=== PATIENT | female | born 1990 | race Caucasian/White ===

== ENCOUNTER 2016-12-15 09:39 | Emergency (ER) | payer MEDICAID ==
[2016-12-15] MEDS ORDERED: NS 0.9% 1000 ML* 2,000 ML IV ONE (10:19)
--- NOTE | 2016-12-15 10:26 | ED ---
Skin Complaint - HPI Summary HPI Summary: 26 female presents with complaints of a right leg infection that began to bother her ~3 days and has only worsened since. Patient states it does drain at times however stops. Describes drainage as yellow to clear and "oil like". Denies any known trauma, bites, or injury to the area. Unknown what caused the infection. Has not had anything like this before. Denies MRSA history. Is not immunocomprimised. No PMHx besides seizures and asthma. Denies any other complaints, fever/chills, abdominal pain, feeling ill, fatigue, chest pain and difficulty breathing. No medication use. Pain is worse and only when palpated or with movement. No alcohol or drug use. No recent travel out of state or country. - History of Current Complaint Chief Complaint: EDExtremityLower Time Seen by Provider: 12/15/16 09:57 Stated Complaint: RT LEG COMPLAINT Hx Obtained From: Patient Onset/Duration: Started Days Ago - 3, Still Present, Worse Since Skin Exposure Onset/Duration: Days Ago - 3 Timing: Constant Onset Severity: Mild Current Severity: Moderate Pain Intensity: 6 Pain Scale Used: 0-10 Numeric Skin Location: Leg - right posterior Character: Swelling, Redness, Raised, Painful Aggravating Symptom(s): Touch, Other: - movement Alleviating Symptom(s): Nothing - rest, not touching it Associated Signs & Symptoms: Negative - Allergy/Home Medications Allergies/Adverse Reactions: Allergies Allergy/AdvReac Type Severity Reaction Status Date / Time Carbamazepine [From Tegretol] Allergy Unknown Unknown Verified 03/21/16 10:45 Reaction Details Lamotrigine [From Lamictal] Allergy Unknown Verified 03/21/16 10:45 Reaction Details PMH/Surg Hx/FS Hx/Imm Hx Endocrine/Hematology History: Denies: Hx Blood Disorders Respiratory History: Reports: Hx Asthma GI History: Denies: Hx Crohn's Disease, Hx Diverticulosis, Hx Gall Bladder Disease, Hx Gastroesophageal Reflux Disease, Hx Irritable Bowel, Hx Ulcer Musculoskeletal History: Denies: Hx Arthritis, Hx Back Problems Neurological History: Reports: Hx Seizures Psychiatric History: Denies: Hx Depression - no know however, pt presents w/ limmited affect - Surgical History Surgery Procedure, Year, and Place: eye surgery at 5 years old - Immunization History Immunizations Up to Date: Yes Infectious Disease History: No Infectious Disease History: Denies: History Other Infectious Disease, Traveled Outside the [place] in Last 30 Days - Family History Known Family History: Positive: None - Social History Alcohol Use: None Substance Use Type: Reports: None Smoking Status (MU): Never Smoked Tobacco Review of Systems Constitutional: Negative Cardiovascular: Negative Respiratory: Negative Gastrointestinal: Negative Musculoskeletal: Negative Positive: Rash - infection/abscess, pain, redness to right leg All Other Systems Reviewed And Are Negative: Yes Physical Exam Triage Information Reviewed: Yes Vital Signs On Initial Exam: Initial Vitals Temp Pulse Resp BP Pulse Ox 99.4 F 92 20 124/82 99 12/15/16 09:41 12/15/16 09:41 12/15/16 09:41 12/15/16 09:41 12/15/16 09:41 Vital Signs Reviewed: Yes Appearance: Positive: Well-Appearing, No Pain Distress, Well-Nourished Skin: Positive: Warm, Skin Color Reflects Adequate Perfusion, Dry, Erythema @ - right posterior lateral leg/calf, firm/indurated, non-blanchable, non fluctuant , with a quarter sized white crusted circular "head"/wound with surrrounding erythema, no necrosis noted. no FB or bites noted. Warm and tender to touch. rest of skin exam normal. edematous area. minmal to no drainage, clear. reminds of brown recluse spider bite.. Negative: Cold, Numb, Cyanosis @, Target Lesions , Scaly Skin/Lesions, Pale Head/Face: Positive: Normal Head/Face Inspection Eyes: Positive: Normal, Conjunctiva Clear ENT: Positive: Hearing grossly normal, Pharynx normal Neck: Positive: Supple, Nontender, No Lymphadenopathy Respiratory/Lung Sounds: Positive: Clear to Auscultation, Breath Sounds Present. Negative: Wheezes Cardiovascular: Positive: Normal, RRR, Pulses are Symmetrical in both Upper and Lower Extremities - 2+ pedal and radial. Negative: Murmur, Rub Bowel Sounds: Positive: Present Musculoskeletal: Positive: Normal, Strength/ROM Intact, Pain @ - with movement in all directions of foot/ankle due to wound on leg, causes pain but able. Negative: Interruption @ Neurological: Positive: Normal, Sensory/Motor Intact - sensation intact, Abnormal Gait - favoring left side due to pain from wound of right leg Psychiatric: Positive: Affect/Mood Appropriate - [place] Coma Scale Coma Scale Total: 15 Diagnostics - Vital Signs Vital Signs Temp Pulse Resp BP Pulse Ox 12/15/16 09:52 99.4 F 92 20 124/82 99 12/15/16 09:41 99.4 F 92 20 124/82 99 - Laboratory Result Diagrams: 12/15/16 11:45 12/15/16 11:45 Lab Statement: Any lab studies that have been ordered have been reviewed, and results considered in the medical decision making process. - Ultrasound No standard instances Ultrasound Interpretation: Positive (See Comments) - SUBCUTANEOUS EDEMA WITH A FLUID COLLECTION OF THE RIGHT POSTERIOR CALF, MEASURING UP TO 2.2 CM, CONCERNING FOR SMALL ABSCESS, GIVEN THE CLINICAL HISTORY. Ultrasound Interpretation Completed By: Radiologist Course/Dx - Course Course Of Treatment: CBC CMP and lactic obtained. U/S of wound obtained to visualize abscess, small abscess noted, linear. After speaking with Dr Ma and viewing U/S do not feel I&D at this time is required as it was superficial fluid. Dr Ma also examined patient and wound. Agrees with plan for antibiotics. Labs unremarkable at this time. Will attempt oral antibiotics and have close follow up in 2-3 days and return if worsening. Given fluids. Attempted Wound culture obtained with small amount of drainage noted. Given pain management continue at home, ibuprofen. Rest. Follow up either in ED or primary care provider within 2-3 days. Sooner if worsening. Keflex/Bactrim, fluids and rest. warm compresses/soaks. Keep clean and dry. Aware of worsening signs and symptoms to watch out for. - Differential Diagnoses - Skin Complaint Differential Diagnoses: Abscess, Cellulitis, Local Allergic Reaction, MRSA, Other - Diagnoses Provider Diagnoses: Cellulitis of right leg - Physician Notifications Discussed Care Of Patient With: Dr Ma Time Discussed With Above Provider: 11:30 Discharge - Discharge Plan Condition: Stable Disposition: HOME Prescriptions: Cephalexin CAP* [Keflex CAP*] 500 mg PO TID #29 cap Sulfamethox/Trimethoprim DS* [Bactrim DS 800/160 TAB*] 1 tab PO BID #19 tab Patient Education Materials: Cellulitis (ED), Abscess (ED), Warm Compress or Soak (ED) Referrals: No Primary Care Phys,NOPCP [Primary Care Provider] - [facility] [place] PH[facility]IAN REFERRAL [Outside] Additional Instructions: Take prescribed medication as directed, do not miss a dose. Take until doses are completed. Ibuprofen for pain and inflammation. Continue warm compresses and soaks. Ibuprofen for pain and inflammation. Have it re-check in 2-3 days either here, urgent care, or at primary care office to ensure improvement. Drainage may be necessary if significant abscess forms. Keep clean and dry. Drink plenty of fluids. Rest. If redness increases, you develop red streaks, black colored skin in the area, fever/chills, or generalized feeling of illness please return to ED immediately.
--- NOTE | 2016-12-15 11:00 | RAD ---
HISTORY: Rule out abscess, redness and discharge of distal posterior right calf COMPARISONS: None TECHNIQUE: Multiple transverse and longitudinal centimeters were obtained of the area of clinical abnormality of the right posterior calf using grayscale and color Doppler imaging FINDINGS: There is subcutaneous edema. There is a loculated fluid collection in the subcutaneous soft tissues measuring 0.9 x 2.2 x 0.2 cm in size. IMPRESSION: SUBCUTANEOUS EDEMA WITH A FLUID COLLECTION OF THE RIGHT POSTERIOR CALF, MEASURING UP TO 2.2 CM, CONCERNING FOR SMALL ABSCESS, GIVEN THE CLINICAL HISTORY.
[2016-12-15] MEDS ORDERED: Sulfamethox/Trimethoprim DS 800/160* TAB PO ONE (11:59)
[2016-12-15] MEDS ORDERED: Cephalexin CAP* 500 MG PO ONE (11:59)
[2016-12-15 12:02] LABS: Hematocrit 35 % (35-47); Hemoglobin 11.5 g/dl (12.0-16.0); Mean Corpuscular HGB Conc 33 g/dl (31-36); Mean Corpuscular Hemoglobin 30 pg (27-31); Mean Corpuscular Volume 92 fL (80-97); Mean Platelet Volume 9 um3 (7.4-10.4); Red Cell Distribution Width 16 % (10.5-15); White Blood Count 8.5 10^3/ul (3.5-10.8)
[2016-12-15 12:16] LABS: Albumin 4.3 g/dL (3.2-5.2); Calcium 9.1 mg/dL (8.6-10.3); EGFR African American 102.6 (>60); EGFR Non-African American 79.8 (>60); Globulin 3.5 g/dL (2-4); Potassium 3.4 mmol/L (3.5-5.0); Total Bilirubin 0.5 mg/dL (0.2-1.0); Total Protein 7.8 g/dL (6.4-8.9)
[2016-12-15] MEDS ORDERED: Ketorolac INJ* 30 MG/ML 1 ML VIAL IV PUSH ONE (12:23)
[2016-12-15 12:40] VITALS: BP 132/78
[2016-12-15] MEDS ORDERED: Tetan/Diph/Pertus SYR(Tdap)* 0.5 ML SYR(BOOSTRIX) use SYR IM ONE (12:42)
== END 2016-12-15 12:59 | disposition home or self-care (01) ==
LOC: ED 09:39
DX: L03.115 Cellulitis of right lower limb (principal); J45.909 Unspecified asthma, uncomplicated
CPT/HCPCS: 36415; 80053; 83605; 85025; 87070; 87205; 90471; 90715; 96360; 96374; 99283; A9270-GY; J1885

== ENCOUNTER 2016-12-17 18:23 | Inpatient (IN) | payer MEDICAID ==
[2016-12-17] MEDS ORDERED: ceFAZolin 2 GM PREMIX (*) 2 GM/50 ML BAG IVPB ONE (20:18)
[2016-12-17 21:12] LABS: Hematocrit 32 % (35-47); Hemoglobin 10.8 g/dl (12.0-16.0); Mean Corpuscular HGB Conc 34 g/dl (31-36); Mean Corpuscular Hemoglobin 31 pg (27-31); Mean Corpuscular Volume 90 fL (80-97); Mean Platelet Volume 9 um3 (7.4-10.4); Red Blood Count 3.55 10^6/ul (4.0-5.4); Red Cell Distribution Width 16 % (10.5-15); White Blood Count 9.6 10^3/ul (3.5-10.8)
[2016-12-17 21:20] LABS: Add Diff/Slide Review? Slide Review Added; Comments Flag Yes
[2016-12-17 21:25] LABS: Albumin 4.3 g/dL (3.2-5.2); BUN/Creatinine Ratio 11.6 (8-20); Calcium 8.9 mg/dL (8.6-10.3); EGFR African American 91.4 (>60); EGFR Non-African American 71.1 (>60); Globulin 3.5 g/dL (2-4); Potassium 3.5 mmol/L (3.5-5.0); Total Bilirubin 0.4 mg/dL (0.2-1.0); Total Protein 7.8 g/dL (6.4-8.9)
[2016-12-17 21:53] LABS: Eosinophils % 1 % (0-6); Immature Granulocytes 12 % (0-9); Metamyelocytes % 1 % (0-2); Neutrophil % 56 % (38-83); Reactive Lymph % 1 % (0-6); Tear Drop Cells 1+
[2016-12-17] MEDS ORDERED: Vancomycin per Pharmacy* NOTE FOLLOW UP PRN (22:13)
[2016-12-17] MEDS ORDERED: Vancomycin(*) 1,250 MG in NS 0.9% 250 ML* 250 ML IVPB ONE (23:00)
--- NOTE | 2016-12-18 00:42 | ED ---
Loree Summers Alfonso, scribed for Elver Nunez on 12/17/16 at 2025 . Lower Extremity - HPI Summary HPI Summary: This patient is a 26 year old F presenting to [facility] with a chief complaint of a worsening RLE erythema which began 5 days ago. Pt was discharged from [facility] 2 days ago with a provider diagnosis of cellulitis of right leg and prescriptions for Bactrim and Keflex. She affirms medication compliance. Pt rates the pain 5/ 10 in severity. Symptoms aggravated and alleviated by nothing. Pt denies fever. - History of Current Complaint Chief Complaint: EDExtremityLower Stated Complaint: POSSIBLE INFECTION RT LEG Time Seen by Provider: 12/17/16 20:02 Hx Obtained From: Patient Onset of Pain: Days - 5, Prior to Arrival Onset/Duration: Days - 5 Severity Initially: Moderate Severity Currently: Moderate Pain Intensity: 5 Pain Scale Used: 0-10 Numeric Timing: Constant Location: Is Discrete @ - RLE Associated Signs And Symptoms: Positive: Redness. Negative: Fever Aggravating Factor(s): Nothing Alleviating Factor(s): Nothing - Allergies/Home Medications Allergies/Adverse Reactions: Allergies Allergy/AdvReac Type Severity Reaction Status Date / Time Carbamazepine [From Tegretol] Allergy Unknown Unknown Verified 03/21/16 10:45 Reaction Details Lamotrigine [From Lamictal] Allergy Unknown Verified 03/21/16 10:45 Reaction Details PMH/Surg Hx/FS Hx/Imm Hx Endocrine/Hematology History: Denies: Hx Blood Disorders Respiratory History: Reports: Hx Asthma GI History: Denies: Hx Crohn's Disease, Hx Diverticulosis, Hx Gall Bladder Disease, Hx Gastroesophageal Reflux Disease, Hx Irritable Bowel, Hx Ulcer Musculoskeletal History: Denies: Hx Arthritis, Hx Back Problems Neurological History: Reports: Hx Seizures Psychiatric History: Denies: Hx Depression - no know however, pt presents w/ limmited affect - Surgical History Surgery Procedure, Year, and Place: eye surgery at 5 years old Infectious Disease History: No Infectious Disease History: Denies: History Other Infectious Disease, Traveled Outside the [place] in Last 30 Days - Family History Known Family History: Negative: Hypertension, Diabetes - Social History Alcohol Use: None Substance Use Type: Reports: None Smoking Status (MU): Never Smoked Tobacco Review of Systems Negative: Fever Positive: Other - Positive RLE erythema. All Other Systems Reviewed And Are Negative: Yes Physical Exam Triage Information Reviewed: Yes Vital Signs On Initial Exam: Initial Vitals Temp Pulse Resp BP Pulse Ox 98.3 F 79 20 135/79 98 12/17/16 18:25 12/17/16 18:25 12/17/16 18:25 12/17/16 18:25 12/17/16 18:25 Vital Signs Reviewed: Yes Appearance: Positive: Well-Appearing, No Pain Distress Skin: Positive: Other - RLE erythema 6 inches in diameter with pustule at the center. Head/Face: Positive: Normal Head/Face Inspection Eyes: Positive: EOMI, EMILIA ENT: Positive: Normal ENT inspection Neck: Positive: Supple, Nontender Respiratory/Lung Sounds: Positive: Clear to Auscultation, Breath Sounds Present Cardiovascular: Positive: RRR, Pulses are Symmetrical in both Upper and Lower Extremities Abdomen Description: Positive: Nontender, Soft Bowel Sounds: Positive: Present Musculoskeletal: Positive: Normal, Strength/ROM Intact Neurological: Positive: Normal, Sensory/Motor Intact, Alert, Oriented to Person Place, Time, Other - No neurovascular deficit. Diagnostics - Vital Signs Vital Signs Temp Pulse Resp BP Pulse Ox 12/17/16 19:23 99.3 F 84 16 133/70 100 12/17/16 18:25 98.3 F 79 20 135/79 98 - Laboratory Lab Statement: Any lab studies that have been ordered have been reviewed, and results considered in the medical decision making process. Lower Extremity Course/Dx - Course Assessment/Plan: 26 year old F presents to the ED with a CC of worsening RLE erythema which began 5 days ago. Pt was discharged from [facility] 2 days ago with a provider diagnosis of cellulitis of right leg and prescriptions for Bactrim and Keflex. We discussed patient care with Dr. Lombardo (hospitalist) and they accepted the patient for admission after seeing them in the ED. Pt is agreeable with this plan. - Diagnoses Provider Diagnoses: Cellulitis and abscess of right leg - Physician Notifications Discussed Care Of Patient With: Frank Lombardo Time Discussed With Above Provider: 21:09 Instructed by Provider To: Other - Consulted Dr. Lombardo (hospitalist) who will see patient in the ED. After seeing pt in the ED, Dr. Lombardo accepted patient for admission at 2112. Discharge - Discharge Plan Condition: Stable Disposition: ADMITTED TO [facility] Referrals: No Primary Care Phys,NOPCP [Primary Care Provider] - [facility] [place] PHYS[facility]IAN REFERRAL [Outside] The documentation as recorded by the Loree stallworth Alfonso accurately reflects the service I personally performed and the decisions made by , Elver Nunez.
[2016-12-18] MEDS: Ibuprofen TAB* 600 MG PO PRN ×2 (03:19→20:30)
[2016-12-18] MEDS ORDERED: Acetaminophen TAB* 325 MG PO ONE (04:00)
[2016-12-18 05:39] LABS: Hematocrit 33 % (35-47); Hemoglobin 10.8 g/dl (12.0-16.0); Mean Corpuscular HGB Conc 33 g/dl (31-36); Mean Corpuscular Hemoglobin 30 pg (27-31); Mean Corpuscular Volume 90 fL (80-97); Mean Platelet Volume 9 um3 (7.4-10.4); Red Cell Distribution Width 16 % (10.5-15); White Blood Count 12.1 10^3/ul (3.5-10.8)
[2016-12-18] MEDS: Heparin VIAL(*) 5000 UNITS/ML VIAL (FIVE THOUSAND) SUBCUT SCH ×3 (05:53→22:00)
[2016-12-18] MEDS: Vancomycin(*) 1,250 MG in NS 0.9% 250 ML* 250 ML IVPB SCH ×3 (05:54→22:00)
--- NOTE | 2016-12-18 10:59 | HP ---
HISTORY AND PHYSICAL: DATE OF ADMISSION: 12/17/16 PRIMARY CARE PROVIDER: None. ATTENDING PHYSICIAN: Dr. Frank Lombardo * (dictated by Alyssa Shabazz NP). CHIEF COMPLAINT: Right lower extremity redness and swelling. HISTORY OF PRESENT ILLNESS: Ms. Carty is a 26-year-old female with a past medical history significant for a history of epilepsy and asthma in her teens, who initially noticed approximately 5 days some redness to her right calf. The redness and discomfort increased and she had noticed that she had been having some yellow drainage from the area at times. She denied any trauma, insect bites, or any wound to the area. She presented to the emergency room on December 15, at which time she had ultrasound showing a subcutaneous edema with fluid collection in the right posterior calf and a 2.2 cm area concerning for a small abscess. At that time, the patient was discharged from the emergency room with the diagnosis of cellulitis and placed on Keflex and Bactrim with instructions to do warm compresses. At the time, the wound was also cultured. Since the culture on the patient's ER visit, her wound culture has grown Staphylococcus saprophyticus and the area of erythema has turned more to a purple color and the middle of the wound has opened up slightly and the area continues to drain a yellow liquid. The patient also reports cramping in her right calf when walking. She denies any fever, but reports having chills today and over the last few days. The patient reports intermittent chest discomfort that she relates to be related to stress as she is a recent single mother with 5 kids at home. She denies any other symptoms such as diaphoresis, nausea, vomiting, lightheadedness, or dizziness. The patient is currently chest pain-free at this time. The patient also reports shortness of breath with exertion which she has had for a while as she noticed this most when she goes upstairs. The patient reports that she has been taking her medications as directed. The patient decided to present to the emergency room today for further evaluation of her wound as it is getting worse and not improving. While in the emergency room, the patient had labs. She has no leukocytosis. She is afebrile. Her labs were fairly unremarkable. She received a dose of cefazolin while in the emergency room and the hospitalists were asked to evaluate the patient for admission. PAST MEDICAL HISTORY: 1. Epilepsy, has not had a seizure since her senior year of high school. 2. Asthma, has not had an issue since she was a teenager. PAST SURGICAL HISTORY: Status post eye surgery at age 5. HOME MEDICATIONS: Include: 1. Bactrim DS one tablet oral twice daily. 2. Ibuprofen 400 mg oral every 6 hours as needed for pain. 3. Keflex 500 mg oral 3 times daily. ALLERGIES: LAMICTAL and TEGRETOL. FAMILY HISTORY: The patient denies any family history of coronary artery disease, diabetes mellitus, or cancer. SOCIAL HISTORY: The patient denies tobacco, alcohol, or recreational drug use. She is a qkef-ce-luxy single mother of 5 children. She reports no surrogate decision maker at this time. REVIEW OF SYSTEMS: I performed a 14-point review of systems. All the pertinent positives and negatives are mentioned in the history of present illness. Remaining review of systems are negative. PHYSICAL EXAMINATION GENERAL APPEARANCE: The patient is alert, pleasant, appears to be in no acute distress. VITAL SIGNS: Temperature 99.3, heart rate 84, respiratory rate 16, O2 sat 100% on room air, blood pressure 133/70. HEENT: Normocephalic and atraumatic. Pupils are equal and reactive to light. Extraocular movements are intact. NECK: Supple. There is no lymphadenopathy noted. RESPIRATORY: There is no accessory muscle use. The lungs are clear to auscultation bilaterally. CARDIOVASCULAR: Regular rate and rhythm. S1 and S2 present. There is no murmurs, rubs, or gallops. ABDOMEN: Soft, nontender, and nondistended. There are bowel sounds present x4. EXTREMITIES: There is no lower extremity edema to the left, but there is swelling to the right calf. DP and PT pulses are 2+ and symmetric. MUSCULOSKELETAL: There is no clubbing or cyanosis noted. The patient exhibits good strength in all extremities. NEUROLOGIC: The patient is alert and oriented x4. Cranial nerves II through XII are intact. PSYCHOLOGICAL: The patient is calm and cooperative. SKIN: The patient has a purplish [place] to her posterior calf with some areas of erythema surrounding that. In addition to the center area of the purplish erythema, the patient has what appears to be a fluid-filled blister with a center that appears to have opened up and is draining some clear yellow fluid. DIAGNOSTIC STUDIES/LABORATORY DATA: Sodium 136, potassium 3.5, chloride 105, CO2 of 23, BUN 11, creatinine 0.95, glucose 106. White blood cell count 9.6, hemoglobin 10.8, hematocrit 32, and platelet count 159. IMPRESSION: Ms. Carty is a 26-year-old female with a past medical history significant for epilepsy and asthma as a child, who presented to the emergency room with right calf redness and swelling that has not improved after being placed on Keflex and Bactrim for cellulitis. She will be admitted as inpatient for cellulitis. ASSESSMENT/PLAN: 1. Cellulitis. The patient has a wound culture back from 12/15/16 showing Staphylococcus saprophyticus. She will be placed on vancomycin. She had blood cultures drawn in the emergency room. At this time, she is currently afebrile and has no leukocytosis. We will have pharmacy dose her vancomycin with a trough goal of 15 to 20. 2. History of epilepsy. The patient is not currently on medications and has not had a seizure for almost 10 years. 3. Asthma. The patient had childhood asthma and this is not currently an issue for her as she is not currently on any medications. 4. Fluids, electrolytes, and nutrition. Regular diet. 5. Code status. Full code. 6. DVT prophylaxis. The patient is at moderate risk and will have subcu heparin. 7. Disposition. Inpatient for cellulitis that failed outpatient treatment. TIME SPENT: Time for this admission was approximately 45 minutes, greater than half of that was spent with the patient discussing medications, past medical history, the events leading up to her arrival today, and performing a physical examination. The case has been reviewed with the attending, Dr. Lombardo, who agrees with the plan of care. Reviewed by BALDO HILL [birth year] 1238 [id number]/[facility] #: [id number] ALMAZ
--- NOTE | 2016-12-18 13:07 | PN ---
Subjective Date of Service: 12/18/16 Interval History: Patient seen this morning. Pain with ambulation. No fever or chills. Cellulitic area expanded slightly. Reports minimal discharge. Family History: Unchanged from Admission Social History: Unchanged from Admission Past Medical History: Unchanged from Admission Objective Active Medications: Heparin Sodium (Porcine) (Heparin Vial(*)) 5,000 units SUBCUT Q8HR KYRIE Vancomycin HCl 1,250 mg/ (Sodium Chloride) 250 mls @ 166.667 mls/hr IVPB Q8H KYRIE Ibuprofen (Motrin Tab*) 600 mg PO Q6H PRN Pharmacy Consult (Vancomycin Per Pharmacy*) 1 note FOLLOW UP . PRN Pharmacy Profile Note (Vancomycin Trough Check) 1 note FOLLOW UP 0530 ONE Vital Signs 12/17/16 12/17/16 12/18/16 21:53 22:36 03:25 Temperature 98.5 F 98.5 F Pulse Rate 89 89 Respiratory 18 18 Rate Blood Pressure 135/79 135/79 122/78 (mmHg) O2 Sat by Pulse 98 98 Oximetry 12/18/16 11:15 Temperature 98.0 F Pulse Rate 73 Respiratory 19 Rate Blood Pressure 112/67 (mmHg) O2 Sat by Pulse 98 Oximetry Oxygen Devices in Use Now: None Appearance: Young, F, laying in bed in NAD Eyes: No Scleral Icterus Ears/Nose/Mouth/Throat: - - Poor dentition Neck: NL Appearance and Movements; NL JVP Respiratory: Symmetrical Chest Expansion and Respiratory Effort, Clear to Auscultation Cardiovascular: NL Sounds; No Murmurs; No JVD, RRR Abdominal: NL Sounds; No Tenderness; No Distention Lymphatic: No Cervical Adenopathy Extremities: No Edema Skin: - - Ulcer on posterolateral R calf, some blistering of the skin around the area and a larger erythematous/purplish, warm area, outlined, some slight progression this morning Neurological: Alert and Oriented x 3 Result Diagrams: 12/19/16 05:58 12/19/16 05:58 Assess/Plan/Problems-Billing Assessment: RLE ucler with surrounding cellulitis in a 26 yo F with hx of seizures and distant asthma - Patient Problems (1) Lower limb ulcer, calf Current Visit: Yes Comment: with surrounding cellulitis. Fairly extensive involvement in such a short amount of time. Had small abscess on prior US, has had spontaneous drainage since. Wound cx growing 1+ staph saprophyticus. Continue Vancomycin for now. Will ask Surgery to evaluate the patient. (2) Seizure disorder Current Visit: Yes Comment: No seizures for a long time, not on meds (3) DVT prophylaxis Current Visit: Yes Comment: HSQ
[2016-12-18] MEDS ORDERED: NS 0.9% 250 ML* 250 ML ONE (13:47)
--- NOTE | 2016-12-18 22:03 | CONS ---
CC: Todd Ferrer MD CONSULTATION REPORT: DATE OF CONSULT: 12/18/16 HISTORY OF PRESENT ILLNESS: The patient is a 26-year-old female who presented with cellulitis of th e right lower extremity. She was seen in the emergency room the other day. She had an ultrasound a t that time and she was discharged on antibiotics, but then came back with increasing erythema. She has also had a little yellow drainage from the area. She has not had this type of infection before . She has not had any trauma or injury to the area as far as she knows. She has a history of seizu res and asthma. She is not a diabetic. PHYSICAL EXAMINATION: On examination, she appears fit and energetic. Leg appears well perfused. O n the right posterior calf, midway between the calf and the calcaneus, is an area of erythema coveri ng between 15 and 20 cm. It is indurated, not tender. In the center is an area of eschar, which is about 2 cm across. This is not tender either. There is no fluctuance. There is a fair amount of edema. ASSESSMENT AND PLAN: I have reviewed her ultrasound which shows a very flat fluid collection, which does not have the typical pattern of an abscess, but is certainly conceivable that it is. At present, I am not convinced that there is enough of a fluid collection to justify opening up the eschar, in part I say this based on the appearance of the ultrasound and in part on the clinical exa m, where there is absolutely no tenderness when I palpate over the central portion, and no fluctuanc e either. So, I think we are going to continue the antibiotics and I will keep an eye on her, and i f anything turns amiss we can certainly plan incision at that time. [id number]/[facility] #: [id number]
[2016-12-19] MEDS ORDERED: Vancomycin Trough Check NOTE FOLLOW UP ONE (05:30)
[2016-12-19] MEDS: Heparin VIAL(*) 5000 UNITS/ML VIAL (FIVE THOUSAND) SUBCUT SCH ×3 (05:36→21:23)
[2016-12-19] MEDS: Vancomycin(*) 1,250 MG in NS 0.9% 250 ML* 250 ML IVPB SCH (05:36)
[2016-12-19 06:21] LABS: Hematocrit 32 % (35-47); Hemoglobin 10.5 g/dl (12.0-16.0); Mean Corpuscular HGB Conc 33 g/dl (31-36); Mean Corpuscular Hemoglobin 30 pg (27-31); Mean Corpuscular Volume 92 fL (80-97); Mean Platelet Volume 9 um3 (7.4-10.4); Red Blood Count 3.47 10^6/ul (4.0-5.4); Red Cell Distribution Width 16 % (10.5-15); White Blood Count 7.7 10^3/ul (3.5-10.8)
[2016-12-19 06:33] LABS: BUN/Creatinine Ratio 17.4 (8-20); Calcium 8.7 mg/dL (8.6-10.3); EGFR African American 132.3 (>60); EGFR Non-African American 102.8 (>60); Potassium 3.6 mmol/L (3.5-5.0)
[2016-12-19 06:35] LABS: Add Diff/Slide Review? Slide Review Added; Comments Flag Yes
[2016-12-19 07:21] LABS: Eosinophils % 2 % (0-6); Immature Granulocytes 6 % (0-9); Metamyelocytes % 3 % (0-2); Neutrophil % 65 % (38-83); RBC Morphology Normal (Normal)
--- NOTE | 2016-12-19 08:48 | PN ---
Subjective Date of Service: 12/19/16 Interval History: Patient seen this morning. No new complaints. Still some pain with ambulation but says it is manageable. No fever or chills. Family History: Unchanged from Admission Social History: Unchanged from Admission Past Medical History: Unchanged from Admission Objective Active Medications: Heparin Sodium (Porcine) (Heparin Vial(*)) 5,000 units SUBCUT Q8HR [facility] Vancomycin HCl 1,250 mg/ (Sodium Chloride) 250 mls @ 166.667 mls/hr IVPB Q8H [facility] Ibuprofen (Motrin Tab*) 600 mg PO Q6H PRN Pharmacy Consult (Vancomycin Per Pharmacy*) 1 note FOLLOW UP . PRN Vital Signs 12/18/16 12/18/16 12/18/16 11:15 15:48 19:59 Temperature 98.0 F 98.0 F 98.9 F Pulse Rate 73 81 87 Respiratory 19 16 24 Rate Blood Pressure 112/67 123/64 121/69 (mmHg) O2 Sat by Pulse 98 99 98 Oximetry 12/18/16 12/19/16 12/19/16 20:11 03:37 07:30 Temperature 97.8 F 98.2 F Pulse Rate 50 49 Respiratory 16 17 20 Rate Blood Pressure 107/69 110/61 (mmHg) O2 Sat by Pulse 99 98 Oximetry 12/19/16 12/19/16 08:00 08:34 Temperature Pulse Rate 56 Respiratory 20 Rate Blood Pressure (mmHg) O2 Sat by Pulse Oximetry Oxygen Devices in Use Now: None Appearance: Young, F, laying in bed in NAD Eyes: No Scleral Icterus Ears/Nose/Mouth/Throat: Mucous Membranes Moist Neck: NL Appearance and Movements; NL JVP Respiratory: Symmetrical Chest Expansion and Respiratory Effort, Clear to Auscultation Cardiovascular: NL Sounds; No Murmurs; No JVD, RRR Abdominal: NL Sounds; No Tenderness; No Distention Lymphatic: No Cervical Adenopathy Extremities: No Edema Skin: - - Large area of erythema and warmth over posterior calf with central ulceration and blistering at the edges, erythema seems to be stable, receding slightly Result Diagrams: 12/19/16 05:58 12/19/16 05:58 Assess/Plan/Problems-Billing Assessment: RLE ucler with surrounding cellulitis in a 26 yo F with hx of seizures and distant asthma - Patient Problems (1) Lower limb ulcer, calf Current Visit: Yes Comment: with surrounding cellulitis. Fairly extensive involvement in such a short amount of time. Had small abscess on prior US and had spontaneous drainage since. Wound cx growing 1+ staph saprophyticus. Appreciate Surgery assistance. Continue IV Vancomycin. Blood work improving, remains afebrile. May get ID consult. (2) Seizure disorder Current Visit: Yes Comment: No seizures for a long time, not on meds (3) DVT prophylaxis Current Visit: Yes Comment: HSQ Status and Disposition: Inpatient for continued IV ABx
--- NOTE | 2016-12-19 10:13 | PN ---
Progress Note - Progress Note Date of Service: 12/19/16 Note: Feels OK, not much pain at rest. Erythema receding at edges. Eschar and blistering unchanged. No need for debridement. We will be happy to follow in office or wound clinic upon discharge.
[2016-12-19] MEDS: Vancomycin(*) 1,000 MG in NS 0.9% 250 ML* 250 ML IVPB SCH ×2 (14:08→21:23)
[2016-12-20] MEDS: Vancomycin(*) 1,000 MG in NS 0.9% 250 ML* 250 ML IVPB SCH (06:12)
[2016-12-20] MEDS: Heparin VIAL(*) 5000 UNITS/ML VIAL (FIVE THOUSAND) SUBCUT SCH (06:12)
[2016-12-20 07:56] VITALS: BP 129/80
--- NOTE | 2016-12-20 10:40 | DCNOTE ---
Subjective Date of Service: 12/20/16 Family History: Unchanged from Admission Social History: Unchanged from Admission Past Medical History: Unchanged from Admission Objective Active Medications: Heparin Sodium (Porcine) (Heparin Vial(*)) 5,000 units SUBCUT Q8HR [facility] Last Admin: 12/20/16 06:12 Dose: 5,000 units Vancomycin HCl 1,000 mg/ (Sodium Chloride) 250 mls @ 166.667 mls/hr IVPB Q8H [facility] Last Admin: 12/20/16 06:12 Dose: 166.667 mls/hr Ibuprofen (Motrin Tab*) 600 mg PO Q6H PRN PRN Reason: PAIN Last Admin: 12/18/16 20:30 Dose: 600 mg Pharmacy Consult (Vancomycin Per Pharmacy*) 1 note FOLLOW UP . PRN PRN Reason: PER PROTOCOL Pharmacy Profile Note (Vancomycin Trough Check) 1 note FOLLOW UP 0600 ONE Stop: 12/22/16 06:01 Vital Signs 12/19/16 12/19/16 12/19/16 11:35 15:36 22:59 Temperature 98.3 F 98.2 F Pulse Rate 59 86 Respiratory 18 18 Rate Blood Pressure 117/75 132/74 (mmHg) O2 Sat by Pulse 98 98 Oximetry 12/19/16 12/19/16 12/20/16 23:00 23:32 04:22 Temperature 98.1 F 98.2 F Pulse Rate 72 52 Respiratory 18 17 17 Rate Blood Pressure 140/81 155/106 (mmHg) O2 Sat by Pulse 99 98 Oximetry 12/20/16 07:44 Temperature 98.0 F Pulse Rate 56 Respiratory 18 Rate Blood Pressure 129/80 (mmHg) O2 Sat by Pulse 97 Oximetry Oxygen Devices in Use Now: None Result Diagrams: 12/19/16 05:58 12/19/16 05:58 Assess/Plan/Problems-Billing Assessment: RLE ucler with surrounding cellulitis in a 26 yo F with hx of seizures and distant asthma - Patient Problems (1) Cellulitis Status: Acute Code(s): L03.90 - CELLULITIS, UNSPECIFIED SNOMED Code(s): 875632852 Comment: R lower leg cellulitis improved. Discharge now on linezolid 600 mg bid x 10 days. Status and Disposition: Discharge as above. Staff will arrange PCP fup.
--- NOTE | 2016-12-20 10:54 | PN ---
Progress Note - Progress Note Date of Service: 12/20/16 Note: Time spent on discharge 45 minutes.
[2016-12-20] MEDS ORDERED: Linezolid TAB* 600 MG PO SCH (11:00)
--- NOTE | 2016-12-21 09:55 | DS ---
DISCHARGE SUMMARY: DATE OF ADMISSION: 12/17/16 DATE OF DISCHARGE: 12/20/16 HISTORY OF PRESENT ILLNESS: This 26-year-old woman was admitted with cellulitis of the right lower leg. She is not aware of how this started, perhaps an insect bite or other injury. She went to the ER on 12/15/16 and was given a prescription for sulfamethoxazole, trimethoprim and cephalexin which she filled that day. She took it for 2 days, but her leg seemed a little worse. She was then admi tted on the evening of 12/17/16. She had vancomycin for about 2-1/2 days here. There was some impr ovement in her leg. The pain resolved. Ultrasound showed 0.9 cm x 2.[address] Heriberto johnson saw the area and felt there was not enough fluid to aspirate and recommended simply continue on the antibiotics. On the day of discharge, I saw the patient. The affected area had withdrawn a little bit from the i nked margins. The patient said the color had improved somewhat. The entire lesion was about 12 cm across. There was a central 2-3 cm open area with minimal drainage. Wound culture from 12/15/16 grew Staphylococcus saprophyticus. Two blood cultures on 12/17/16 grew no growth. The patient was afebrile. I note her staphylococcus was sensitive to both vancomycin an d linezolid. The bacterial etiology of her cellulitis cannot be determined. I am not surprised that the clearing of the infection at least superficially looks relatively slow being on the lower leg. I note her w christina blood count did improve from 12.1 to 7.7. Her pain is improved and visual appearance as best I can determine is improved. As this may possibly be started with a small abscess, I think coverage f or the staph is reasonable. She did not respond to the 2 oral antibiotics as an outpatient and I th ink it is reasonable to treat her for MRSA, although this is far from a definite diagnosis. She darvin l take linezolid 600 mg b.i.d. for 10 days. FINAL DIAGNOSES: 1. Cellulitis of the right leg. 2. History of a childhood seizure. 3. History of childhood asthma. DISCHARGE MEDICATIONS: Linezolid 600 mg b.i.d. for 10 days, ibuprofen 800 mg every 8 hours p.r.n. [id number]/[facility], [place] #: [id number]
[2016-12-22] MEDS ORDERED: Vancomycin Trough Check NOTE FOLLOW UP ONE (06:00)
== END 2016-12-20 11:25 | disposition home or self-care (01) | DRG 383 ==
LOC: ED 18:23 → MED 21:37
PROVIDERS: ADMIT Internal Medicine; ATTEND Internal Medicine
DX: L03.115 Cellulitis of right lower limb (principal); L97.219 Non-pressure chronic ulcer of right calf with unspecified severity; Z88.8 Allergy status to other drugs, medicaments and biological substances; J45.909 Unspecified asthma, uncomplicated; G40.909 Epilepsy, unspecified, not intractable, without status epilepticus; B95.7 Other staphylococcus as the cause of diseases classified elsewhere
CPT/HCPCS: 36415; 80048; 80053; 80202; 85025; 87040; A9270-GY; J0690; J1644; J3370

== ENCOUNTER 2017-07-17 09:46 | Emergency (ER) | payer MEDICAID ==
--- NOTE | 2017-07-17 11:57 | UC ---
Respiratory Complaint HPI - HPI Summary HPI Summary: Pt presents with dry cough and dyspnea for the last week. She says that she has a history of asthma, but has not needed an inhaler for many years. She has not been taking anything OTC for her pain. Denies fever, chills, SOB, chest pain, abdominal pain, n/v/d/c, or body aches - History of Current Complaint Chief Complaint: UCRespiratory Stated Complaint: URI Time Seen by Provider: 07/17/17 11:52 Hx Obtained From: Patient Hx Last Menstrual Period: 07/10/17 Onset/Duration: Gradual Onset Severity Initially: Mild Severity Currently: Mild Pain Intensity: 4 Pain Scale Used: 0-10 Numeric Character: Cough: Nonproductive - Allergies/Home Medications Allergies/Adverse Reactions: Allergies Allergy/AdvReac Type Severity Reaction Status Date / Time carbamazepine [From Tegretol] Allergy Unknown Verified 07/17/17 10:05 Reaction Details lamotrigine [From Lamictal] Allergy Unknown Verified 07/17/17 10:05 Reaction Details Home Medications: Home Medications Acetaminophen [APAP] 650 mg PO 07/17/17 [History] PMH/Surg Hx/FS Hx/Imm Hx Previously Healthy: Yes Respiratory History: Asthma - Surgical History Surgical History: Yes Surgery Procedure, Year, and Place: eye surgery at 5 years old - Family History Known Family History: Positive: None Negative: Hypertension, Diabetes - Social History Occupation: Employed Full-time Alcohol Use: None Substance Use Type: None Smoking Status (MU): Never Smoked Tobacco Have You Smoked in the Last Year: No - Immunization History Most Recent Influenza Vaccination: never Most Recent Pneumonia Vaccination: not vaccinated Review of Systems Constitutional: Negative Skin: Negative Eyes: Negative ENT: Negative Respiratory: Cough Cardiovascular: Negative Gastrointestinal: Negative Musculoskeletal: Negative Neurological: Negative Psychological: Negative All Other Systems Reviewed And Are Negative: Yes Physical Exam - Summary Physical Exam Summary: GENERAL: Mildly ill appearing. NAD. WDWN. No pain distress. SKIN: No rashes, sores, ulcers, masses, lesions. No clubbing or cyanosis. HEENT: Head: AT/NC Eyes: Conjunctiva clear without inflammation or discharge. Ears: Hearing grossly normal. TMs intact, no bulging, erythema, or edema. Nose: Nasal mucosa pink and moist. NTTP maxillary and frontal sinus. Throat: Posterior oropharynx without exudates, erythema, or tonsillar enlargement. Uvula midline. NECK: Supple. Nontender. No lymphadenopathy. CHEST: Mild wheezing throughout. CTAB. No r/r. No accessory muscle use. Breathing comfortably and in no distress. CV: RRR. Without m/r/g. Pulses intact. Brisk cap refill. NEURO: Alert. CN II-XII grossly intact. PSYCH: Age appropriate behavior. Triage Information Reviewed: Yes Vital Signs: Initial Vital Signs Temp 99.0 F 07/17/17 10:01 Pulse 87 07/17/17 10:01 Resp 18 07/17/17 10:01 BP 114/66 07/17/17 10:01 Pulse Ox 99 07/17/17 10:01 Vital Signs Reviewed: Yes Diagnostic Evaluation - Laboratory O2 Sat by Pulse Oximetry: 99 Respiratory Course/Dx - Course Course Of Treatment: Given her history of asthma and length of symptoms, will cover her with an antibiotic and start her with an albuterol inhaler. - Differential Dx/Diagnosis Provider Diagnoses: Bronchitis. Asthma exacerbation Discharge - Discharge Plan Condition: Stable Disposition: HOME Prescriptions: Albuterol HFA INHALER* [Ventolin HFA Inhaler*] 2 puff INH Q6H PRN #1 mdi PRN Reason: Cough Azithromycin TAB* [Zithromax TAB (Z-LANDY) 250 mg #6 tabs] 2 tab PO .TODAY, THEN 1 DAILY #1 landy Patient Education Materials: Asthma (DC), Acute Bronchitis (ED) Referrals: Casey Jorge MD [Primary Care Provider] - Additional Instructions: If you develop a fever, shortness of breath, chest pain, new or worsening symptoms - please call your PCP or go to the ED.
[2017-07-17 12:24] VITALS: BP 138/76
== END 2017-07-17 12:00 | disposition home or self-care (01) ==
LOC: UCEAST 09:46
DX: J45.901 Unspecified asthma with (acute) exacerbation (principal); Z88.8 Allergy status to other drugs, medicaments and biological substances
CPT/HCPCS: 99211; 99212; G0463

== ENCOUNTER 2017-07-19 12:00 | Emergency (ER) | payer MEDICAID ==
[2017-07-19 12:13] VITALS: BP 125/72
== END 2017-07-19 13:23 | disposition left against medical advice (07) ==
LOC: UCEAST 12:00
DX: R09.89 Other specified symptoms and signs involving the circulatory and respiratory systems (principal); Z53.21 Procedure and treatment not carried out due to patient leaving prior to being seen by health care provider

== ENCOUNTER 2018-10-23 10:55 | Emergency (ER) | payer OTHER ==
[2018-10-23] MEDS ORDERED: Silver Sulfadiazine 1%* 20 GM TOPICAL ONE (12:09)
[2018-10-23] MEDS ORDERED: Ibuprofen TAB* 800 MG PO ONE (12:09)
--- NOTE | 2018-10-23 12:11 | ED ---
Skin Complaint - HPI Summary HPI Summary: Patient is a 20-year-old female who presents emergency department for evaluation of burn to her right arm that occurred just prior to arrival. Patient states she was at home making chicken in pain and when she moved the chicken grease splashed onto her right arm. Patient applied a cool washcloth and applied [id number] burn cream and presents for further evaluation. Patient states last tetanus immunization was 3 years ago. She has not a past medical history. Symptoms are mild in severity. Touching affected area makes symptoms worse. Nothing makes symptoms better. - History of Current Complaint Chief Complaint: EDBurnSmokeInh Time Seen by Provider: 10/23/18 11:58 Stated Complaint: BURN ON RT ARM AND HAND PER PT Hx Obtained From: Patient Hx Last Menstrual Period: 07/10/17 Pain Intensity: 4 - Additional Pertinent History Primary Care Physician: [id number] - Allergy/Home Medications Allergies/Adverse Reactions: Allergies Allergy/AdvReac Type Severity Reaction Status Date / Time carbamazepine [From Tegretol] Allergy Unknown Verified 10/23/18 11:25 Reaction Details lamotrigine [From Lamictal] Allergy Unknown Verified 10/23/18 11:25 Reaction Details PMH/Surg Hx/FS Hx/Imm Hx Previously Healthy: Yes Endocrine/Hematology History: Denies: Hx Blood Disorders Respiratory History: Reports: Hx Asthma GI History: Denies: Hx Crohn's Disease, Hx Diverticulosis, Hx Gall Bladder Disease, Hx Gastroesophageal Reflux Disease, Hx Irritable Bowel, Hx Ulcer Musculoskeletal History: Denies: Hx Arthritis, Hx Back Problems Sensory History: Reports: Hx Contacts or Glasses Denies: Hx Cataracts, Hx Eye Injury, Hx Eye Prosthesis, Hx Glaucoma, Hx Legally Blind, Hx Macular Degeneration, Hx Vision Problem, Hx Deafness, Hx Hearing Aid, Hx Hearing Problem, Other Sensory Impairments Opthamlomology History: Reports: Hx Contacts or Glasses Denies: Hx Cataracts, Hx Eye Injury, Hx Eye Prosthesis, Hx Glaucoma, Hx Legally Blind, Hx Macular Degeneration, Hx Vision Problem, Other Sensory Impairments Neurological History: Reports: Hx Seizures Psychiatric History: Denies: Hx Depression - no know however, pt presents w/ limmited affect - Surgical History Surgery Procedure, Year, and Place: eye surgery at 5 years old - Immunization History Date of Tetanus Vaccine: utd Date of Influenza Vaccine: utd Infectious Disease History: No Infectious Disease History: Denies: Hx Clostridium Difficile, Hx Hepatitis, Hx Human Immunodeficiency Virus (HIV), Hx of Known/Suspected MRSA, Hx Shingles, Hx Tuberculosis, History Other Infectious Disease, Traveled Outside the [place] in Last 30 Days - Family History Known Family History: Positive: None, Non-Contributory Negative: Hypertension, Diabetes - Social History Occupation: Employed Full-time Lives: With Family Alcohol Use: None Substance Use Type: Reports: None Smoking Status (MU): Never Smoked Tobacco Have You Smoked in the Last Year: No Review of Systems Positive: Other - burn to right arm Positive: Other - burn to right arm Neurological: Negative All Other Systems Reviewed And Are Negative: Yes Physical Exam Triage Information Reviewed: Yes Vital Signs On Initial Exam: Initial Vitals Temp Pulse Resp BP Pulse Ox 98.1 F 64 16 143/85 98 10/23/18 11:21 10/23/18 11:21 10/23/18 11:21 10/23/18 11:21 10/23/18 11:21 Vital Signs Reviewed: Yes Appearance: Positive: Well-Appearing - Pt. sitting on bed in NAD. Wash cloth on right arm. Skin: Positive: Warm, Dry Head/Face: Positive: Normal Head/Face Inspection Eyes: Positive: Normal, EOMI, EMILIA Neck: Positive: Supple Musculoskeletal: Positive: Other - <2% 1st degree burn to right distal forearm on volar aspect. Wrist is not involved. Slight erythema dorsal aspect of right thumb with small blister. No circumferential burn. Full ROM of all digits. Neurological: Positive: Normal, CN Intact II-III Diagnostics - Vital Signs Vital Signs Temp Pulse Resp BP Pulse Ox 10/23/18 11:21 98.1 F 64 16 143/85 98 - Laboratory Lab Statement: Any lab studies that have been ordered have been reviewed, and results considered in the medical decision making process. Course/Dx - Course Course Of Treatment: Pt. presenting for superficial burn to right forearm and small blister to right thumb. Full ROM of joint. Nothing is circumferential. Adams are superficial and less than 2%. Burn was cleaned in the ER and dressed with Silvadene cream and sterile nonstick dressing. Patient states she currently does not have a family doctor. We'll [facility] as well as the [facility] clinic in [place]. Patient was given information for both clinics and is to call them tomorrow for close follow -up appointment.. Tylenol or Motrin for pain as directed. To keep areas clean and dry. Cool compresses. Return to the ER for redness, swelling, increased pain, drainage, fever or if concerned. Patient understands and agrees with plan. - Diagnoses Provider Diagnoses: First degree burn, Second degree burn Discharge - Sign-Out/Discharge Documenting (check all that apply): Patient Departure Patient Received Moderate/Deep Sedation with Procedure: No - Discharge Plan Condition: Good Disposition: HOME Prescriptions: Silver Sulfadiazine 1%* [SILVadine 1%*] 1 applic TOPICAL BID #60 tube Patient Education Materials: Superficial Burn (ED), Second Degree Burn (ED) Referrals: [facility] [Outside] Additional Instructions: Please schedule a follow up appointment with the [facility] as well as the [facility] in [place] Keep wound clean and dry Apply ointment as directed Can rotate Tylenol and Motrin every 3 hours for pain control Return to ER for increased pain, redness, swelling, drainage or if concerned [facility] [id number] [place] [address] Website: [facility] - Billing Disposition and Condition Condition: GOOD Disposition: Home
[2018-10-23 13:09] VITALS: BP 126/68
== END 2018-10-23 13:08 | disposition home or self-care (01) ==
LOC: ED 10:55
DX: T23.211A Burn of second degree of right thumb (nail), initial encounter (principal); T22.111A Burn of first degree of right forearm, initial encounter; X10.2XXA Contact with fats and cooking oils, initial encounter; Y93.G3 Activity, cooking and baking; Y92.9 Unspecified place or not applicable
CPT/HCPCS: 99282; A9270-GY